=== PATIENT | female | born 1965 | race Caucasian/White ===

== ENCOUNTER 2019-07-29 06:53 | Outpatient (RCR) | payer MEDICARE, SELFPAY | END 2019-08-21 23:59 | disposition home or self-care (01) | LOC: PULRHB 06:53 | PROVIDERS: Family Provider Family Medicine; Visit Provider Internal Medicine Critical Care Medicine | DX: J44.9 Chronic obstructive pulmonary disease, unspecified (principal) ==

== ENCOUNTER → 2021-06-27 15:47 | Outpatient (BNVA) | payer MEDICARE, SELFPAY | PROVIDERS: Visit Provider Family Medicine | DX: J44.9 Chronic obstructive pulmonary disease, unspecified (principal); R91.1 Solitary pulmonary nodule; Z76.89 Persons encountering health services in other specified circumstances | CPT/HCPCS: 80053; 80061; 84443; 85025 ==

== ENCOUNTER → 2021-06-28 13:26 | Outpatient (BNVA) | payer MEDICARE, SELFPAY | PROVIDERS: Visit Provider Family Medicine | DX: J44.9 Chronic obstructive pulmonary disease, unspecified (principal); R91.1 Solitary pulmonary nodule; Z76.89 Persons encountering health services in other specified circumstances | CPT/HCPCS: 85025 ==

== ENCOUNTER 2021-12-05 13:43 | Outpatient (CLI) | payer MEDICARE, SELFPAY ==
--- NOTE | 2021-12-05 13:57 | CT_ITS ---
WS: [id number] CT CHEST WITHOUT INTRAVENOUS CONTRAST HISTORY: Pulmonary nodule TECHNIQUE: Contiguous 5 mm axial imaging performed on the thorax. Coronal and sagittal reformats are submitted. All CT scans at [facility] use at least one of these dose optimization techniques: automated exposure control; mA and/or kV adjustment per patient size (includes targeted exams where dose is matched to clinical indication); or iterative reconstruction. CONTRAST: None DLP: 426.05 mGy.cm COMPARISON: 10/03/2010 and 10/24/2017 radiograph. Lungs and central airway: Marked pulmonary hyperexpansion. Large bulla in the upper lung vasquez. Ther e is scattered granulomata which are calcified throughout both lungs. No focal nodule or mass. There are several noncalcified 3 to 4 mm nodules superior segment RIGHT lower lobe which are present in 201 1. Pleura: Normal. No pleural effusion. Heart and pericardium: Normal size heart with no pericardial effusion. Mediastinum and jhonny: No mediastinum or hilar adenopathy. Vessels: Normal size aortic and pulmonary artery. No coronary artery calcifications. Chest wall and lower neck: No soft tissue masses. Upper abdomen: Splenic granulomata. Nonenhanced imaging of the liver is normal. Osseous structures: Mild anterior wedging of T6. CT/CT chest wo con [id number] IMPRESSION: 1. Severe bullous emphysema. 2. Prior granulomatous disease. 3. Stable calcified and noncalcified nodule since 2010.
== END 2021-12-05 13:44 | disposition home or self-care (01) ==
PROVIDERS: PCP Family Medicine; Visit Provider Family Medicine
DX: R91.1 Solitary pulmonary nodule (principal); J43.9 Emphysema, unspecified
CPT/HCPCS: 71250

== ENCOUNTER → 2021-12-21 13:01 | Outpatient (BNVA) | payer MEDICARE, SELFPAY | PROVIDERS: PCP Family Medicine; Visit Provider Internal Medicine Critical Care Medicine | DX: J44.9 Chronic obstructive pulmonary disease, unspecified (principal); R91.1 Solitary pulmonary nodule; J96.11 Chronic respiratory failure with hypoxia; J96.12 Chronic respiratory failure with hypercapnia; Z99.81 Dependence on supplemental oxygen; Z87.891 Personal history of nicotine dependence | CPT/HCPCS: 99204 ==

== ENCOUNTER 2021-12-28 11:11 | Outpatient (CLI) | payer MEDICARE, SELFPAY ==
--- NOTE | 2021-12-28 | CT_ITS ---
Guided Bronchoscopy Planning CT images; total exam DLP: 546.74 mGy-cm MTDD
[2021-12-28 14:30] VITALS: BP 125/62; BP 158/84
--- NOTE | 2022-01-02 10:30 | PFTS_ITS ---
Date of Study:12/28/21 Date of Dictation: MECHANICS: Forced vital capacity (FVC) is reduced. Forced expiratory volume in one second (FEV1) is reduced. FEV1/FVC is reduced. FLOW VOLUME LOOP: Reduced flow at all lung volumes with significant scooping. LUNG VOLUMES: Total lung capacity (TLC) is increased. Residual volume (RV) is increased. DIFFUSING CAPACITY FOR CARBON MONOXIDE: Severely reduced. INTERPRETATION: The postbronchodilator spirometry is consistent with very severe obstruction. There is no significant postbronchodilator response. Lung volumes are consistent with hyperinflation and air trapping. Gas exchange (DLCO) is severely reduced. MTDD
== END 2021-12-28 11:12 | disposition home or self-care (01) ==
PROVIDERS: PCP Family Medicine; Visit Provider Internal Medicine Critical Care Medicine
DX: J44.9 Chronic obstructive pulmonary disease, unspecified (principal)
CPT/HCPCS: 71250; 94060; 94618; 94729; J7611

== ENCOUNTER 2023-01-25 15:30 | Emergency (ER) | payer MEDICARE, SELFPAY ==
[2023-01-25 15:37] VITALS: BP 120/66; PULSE 107; RESP 17; TEMP 36.6; O2SAT 97; BMI 18.3
--- NOTE | 2023-01-25 17:18 | XRR_ITS ---
PROCEDURE INFORMATION: Exam: XR Chest Exam date and time: 01/25/2023 5:29 PM Age: 57 years old Clinical indication: Pain; Chest pressure; Additional info: Chest congestion, dyspnea TECHNIQUE: Imaging protocol: Radiologic exam of the chest. Views: 2 views. COMPARISON: CT chest SELECT [id number] 12/28/2021 11:25 AM FINDINGS: Lungs: The lungs are hyperexpanded consistent with COPD. No acute abnormalities seen. Similar findings seen comparing to prior examination Pleural spaces: Unremarkable. No pleural effusion. No pneumothorax. Heart/Mediastinum: Unremarkable. No cardiomegaly. Bones/joints: Unremarkable. XR/XR chest 2V* [id number] IMPRESSION: Stable COPD Otherwise No acute findings.
--- NOTE | 2023-01-25 18:00 | ED_ITS ---
HPI - SOB/Dyspnea General: Chief Complaint: Shortness of Breath/Dyspnea Stated Complaint: Pain in Upper back Time Seen by Provider: 01/25/23 18:00 History of Present Illness: HPI Narrative: 57-year-old female comes in today with some complaints of right posterior chest wall pain for about 8 to 10 days. Patient has been given some prednisone for concerns of pleurisy. Patient was recommended to come into the ER today for further evaluation due to the persistence of pain with no improvement form medications. 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 Patient has chronic COPD which she is on routine medications and oxygen for work. Isela ent does take some ibuprofen with improvement of pain. Patient appears in no acute distress. Patient denies any other symptoms such as fever or swelling in the extremities. Associated symptoms: Reports chest pain; Deny nausea or vomiting Review of Systems General: Reports: 10 or more systems reviewed and unremarkable except in HPI and below Card: Reports: chest pain Resp: Denies: dyspnea GI: Denies: nausea or vomiting : Denies: difficulty voiding Musc: Reports: back pain Skin/Breast: Denies: rash PFSH ED PFSH: Medical History (Updated 01/25/23 @ 19:31 by CHANTEL Louis) COPD (chronic obstructive pulmonary disease) MRSA (methicillin resistant Staphylococcus aureus) carrier Pulmonary nodule Social History Smoking and tobacco status: former smoker Quit status (tobacco): has quit using tobacco Year quit tobacco: 2016 Former quit date comment: 1.5ppd x 35 years Second hand smoke exposure: No Alcohol intake: never Desire information about alcohol rehabilitation?: No Substance/Drug Use: never Desire information about substance/drug rehabilitation?: No Physical Exam Const: COMMON NORMALS: alert HENMT: COMMON NORMALS: normocephalic HEAD & SCALP: normocephalic MOUTH: Normal oral and palatal mucosa present Neck/C-Spine: COMMON NORMALS: full ROM Chest: CHEST: Yes tenderness (Right side posterior scapular line) Resp: COMMON NORMALS: normal respiratory effort and clear to auscultation bilaterally AUSCULTATION: clear to auscultation bilaterally Cardio: COMMON NORMALS: regular rate and regular rhythm RATE: regular rate RHYTHM: regular rhythm GI: COMMON NORMALS: non-tender Extremity: COMMON NORMALS: full ROM Neuro: SENSORIUM/ORIENTATION: Yes alert Skin: COMMON NORMALS: turgor normal GENERAL SKIN EXAM: turgor normal Course Vital Signs: Vital signs: Vital Signs Temperature 97.9 F 01/25/23 15:37 Pulse Rate 91 01/25/23 18:51 Respiratory Rate 17 01/25/23 15:37 Blood Pressure 121/79 01/25/23 18:51 Pulse Oximetry 100 01/25/23 18:51 Oxygen Delivery Me thod Nasal Cannula 01/25/23 18:51 Oxygen Flow Rate 3 01/25/23 18:51 MDM - SOB/Dyspnea Medical Decision Making 57-year-old female comes in today for complaints of chest pain. On exam patient has good air movement throughout lung vasquez. Abdomen soft nontender. No edema is noted in the extremities. Vital signs are normal. Patient has chest wall tenderness in the posterior aspect of the right side along the scapular line of the ribs. Differential diagnosis includes but not limited to pneumonia, pneumothorax, pleurisy, PE, costochondritis, rib fracture. X-ray was unremarkable. Laboratory values were unremarkable. CTA of the chest was negative for PE but noted emphysema, enlarged central artery suggesting pulmonary artery hypertension, and progressed thoracic compression fractures. Thoracic compression fractures seem to align with my exam with tenderness along the mid thoracic spine. Reviewed exam with patient with recommendations for treatment and follow-up with orthopedic spine. Patient reported understanding and agreed to plan. Patient will continue with her methadone that she uses for chronic pain and ibuprofen for further pain relief. Case management was requested for help with follow-up with orthopedic spine. Lab Data 01/25/23 18:14 01/25/23 18:14 Labs/Radiology: Radiology Impressions Chest X-Ray 01/25/23 17:18 IMPRESSION: Stable COPD Otherwise No acute findings. Chest CTA 01/25/23 18:05 IMPRESSION: 1. No evidence for pulmonary embolus. 2. Severe emphysema with no acute pulmonary finding. 3. Enlargement of the central pulmonary arteries could represent secondary pulmonary artery hypertension. 4. Multiple new or progressed thoracic compression fractures as described. COMMENTS: In the absence of a history or active diagnosis of lung cancer, it is recommended that this patient with emphysema be evaluated for enrollment in a low dose CT lung cancer screening program. Laboratory Results WBC 10.9 10^3/uL (4.0-10.0) H 01/25/23 18:14 RBC 4.37 10^6/uL (4.1-5.3) 01/25/23 18:14 Hgb 13.6 g/dL (11.5-15.3) 01/25/23 18:14 Hct 42.5 % (37.0-47.0) 01/25/23 18:14 MCV 97.3 fl (81-99) 01/25/23 18:14 MCH 31.1 pg (28.0-34.0) 01/25/23 18:14 MCHC 32.0 g/dL (30.0-36.0) 01/25/23 18:14 RDW 12.8 % (12.1-15.1) 01/25/23 18:14 Plt Count 263 10^3/cmm (130-400) 01/25/23 18:14 MPV 9.8 fL (7.4-10.4) 01/25/23 18:14 Neut % (Auto) 88.6 % 01/25/23 18:14 Lymph % (Auto) 4.1 % 01/25/23 18:14 Todd % (Auto) 6.4 % 01/25/23 18:14 Eos % (Auto) 0.0 % 01/25/23 18:14 Baso % (Auto) 0.2 % 01/25/23 18:14 Neut # (Auto) 9.68 10^3/uL (1.8-7.7) H 01/25/23 18:14 Lymph # (Auto) 0.5 10^3/uL (0.8-4.8) L 01/25/23 18:14 Todd # (Auto) 0.7 10^3/uL (0.2-0.9) 01/25/23 18:14 Eos # (Auto) 0.0 10^3/uL (0.0-0.8) 01/25/23 18:14 Baso # (Auto) 0.0 10^3/uL (0.0-0.1) 01/25/23 18:14 Nucleated RBC % (auto) 0 % 01/25/23 18:14 Nucleated RBCs # 0.0 /100WBC 01/25/23 18:14 Sodium 141 mmol/L (136-145) 01/25/23 18:14 Potassium 3.8 mmol/L (3.5-5.1) 01/25/23 18:14 Chloride 99 mmol/L (98-107) 01/25/23 18:14 Carbon Dioxide 32 mmol/L (22-29) H 01/25/23 18:14 Anion Gap 13.8 (5-19) 01/25/23 18:14 BUN 24 mg/dL (6-20) H 01/25/23 18:14 Creatinine 0.9 mg/dL (0.5-0.9) 01/25/23 18:14 GFR Calculation 64.8 mL/min (90-130) L 01/25/23 18:14 Glucose 88 mg/dL (65-115) 01/25/23 18:14 Calculated Osmolality 295 mOsm/kg (285-295) 01/25/23 18:14 Calcium 10.2 mg/dL (8.5-10.5) 01/25/23 18:14 Total Bilirubin 0.3 mg/dL (0.15-1.2) 01/25/23 18:14 AST 19 U/L (0-32) 01/25/23 18:14 ALT 17 U/L (0-33) 01/25/23 18:14 Alkaline Phosphatase 97 U/L (35-105) 01/25/23 18:14 Total Protein 7.6 g/dL (6.6-8.7) 01/25/23 18:14 Albumin 4.8 g/dL (3.5-5.2) 01/25/23 18:14 Globulin 2.8 g/dL (1.3-4.6) 01/25/23 18:14 Discharge Plan Discharge Patient Disposition: Home Clinical Impression: Compression fx, thoracic spine Qualifiers: Encounter type: initial encounter Thoracic vertebra fracture level: unspecified thoracic vertebra Qualified Code(s): S22.000A - Wedge compression fracture of unspecified thoracic vertebra, initial encounter for closed fracture Condition: Stable Prescriptions: No Action methadone 10 mg tablet 10 mg PO TID albuterol sulfate [Ventolin HFA] 90 mcg/actuation HFA aerosol inhaler 2 puff inhalation Q6H PRN Anoro Ellipta 62.5-25 mcg/actuation blister with device 1 inh inhalation DAILY 30 Days Qty: 60 1RF Discharge Orders: Discharge ED (Routine); Ordered 01/25/23 Ordered By: Nguyễn Sims Referrals: Cipriano Guerra DO [Primary Care Provider] - Discharge Diet: Usual diet Discharge Activity: Increase activity as tolerated Patient Instructions: Vertebral Compression Fracture (ED), Pain Management Activity Restrictions/Additional Instructions: Follow-up with marketing support specialist for further evaluation and treatment. Return to ED for new concerns. You may use ibuprofen for further pain relief. Continue with routine medications as directed. Return to ER for new concerns. Coding Level of Care Code ED [employer] for Eric Rene
--- NOTE | 2023-01-25 18:05 | CTR_ITS ---
PROCEDURE INFORMATION: Exam: CTA Chest With Contrast Exam date and time: 01/25/2023 6:21 PM Age: 57 years old Clinical indication: Right-sided; Patient HX: RT sided chest pain with dyspnea. History of copd and pulmonary nodule. ; Additional info: RT chest pain TECHNIQUE: Imaging protocol: Computed tomographic angiography of the chest with contrast. Exam focused on the arteries. 3D rendering (Not supervised by radiologist): MIP and/or 3D reconstructed images were created by the technologist. Radiation optimization: All CT scans at this facility use at least one of these dose optimization techniques: automated exposure control; mA and/or kV adjustment per patient size (includes targeted exams where dose is matched to clinical indication); or iterative reconstruction. Contrast material: OMNI 350; Contrast volume: 55 ml; Contrast route: INTRAVENOUS (IV); REPORTING DATA: Count of CT and Cardiac NM exams in prior 12 months: This patient has received 0 known CTs and 0 known cardiac nuclear medicine studies in the 12 months prior to the current study. COMPARISON: CT chest SELECT [id number] 12/28/2021 11:25 AM RADIATION DOSE METRICS: Total DLP (mGy-cm): 191.9 FINDINGS: Pulmonary arteries: Enlargement of the central arteries. No pulmonary emboli. Aorta: Unremarkable. No aortic aneurysm. No aortic dissection. Lungs: Calcified granulomas in the right lower lobe. Severe emphysema. Mild scattered atelectasis and scarring in both lungs. The lungs are otherwise clear. Pleural spaces: Unremarkable. No pneumothorax. No pleural effusion. Heart: Unremarkable. No cardiomegaly. No pericardial effusion. Lymph nodes: Calcified right hilar lymph nodes. No enlarged lymph nodes. Spleen: Calcified granulomas in the spleen. Bones/joints: New mild T3, progressed moderate T6, and new moderate T12 compression fractures. New central depression of superior T10 and T11. Soft tissues: Unremarkable. CT/CT angio chest PE protcl [id number] IMPRESSION: 1. No evidence for pulmonary embolus. 2. Severe emphysema with no acute pulmonary finding. 3. Enlargement of the central pulmonary arteries could represent secondary pulmonary artery hypertension. 4. Multiple new or progressed thoracic compression fractures as described. COMMENTS: In the absence of a history or active diagnosis of lung cancer, it is recommended that this patient with emphysema be evaluated for enrollment in a low dose CT lung cancer screening program.
[2023-01-25 18:17] VITALS: BP 130/82; PULSE 99; O2SAT 100
[2023-01-25] MEDS: iohexol 350 mg/mL 500 mL Btl (per mL) IV (18:28)
[2023-01-25 18:37] LABS: Alanine Aminotransferase 17 U/L (0-33); Albumin Level 4.8 g/dL (3.5-5.2); Alkaline Phosphatase 97 U/L (35-105); Anion Gap 13.8 (5-19); Aspartate Amino Transferase 19 U/L (0-32); Blood Urea Nitrogen 24 mg/dL (6-20); Calcium 10.2 mg/dL (8.5-10.5); Carbon Dioxide 32 mmol/L (22-29); Chloride 99 mmol/L (98-107); Globulin 2.8 g/dL (1.3-4.6); Glomerular Filtration Rate 64.8 mL/min (90-130); Glucose 88 mg/dL (65-115); Osmolality Calculated 295 mOsm/kg (285-295); Potassium 3.8 mmol/L (3.5-5.1); Sodium 141 mmol/L (136-145); Total Bilirubin 0.3 mg/dL (0.15-1.2); Total Protein 7.6 g/dL (6.6-8.7)
[2023-01-25 18:41] LABS: Basophils % 0.2 %; Hematocrit 42.5 % (37.0-47.0); Hemoglobin 13.6 g/dL (11.5-15.3); Lymphocytes # 0.5 10^3/uL (0.8-4.8); Lymphocytes % 4.1 %; Mean Corpuscular Hemoglobin 31.1 pg (28.0-34.0); Mean Corpuscular Volume 97.3 fl (81-99); Mean Platelet Volume 9.8 fL (7.4-10.4); Monocytes # 0.7 10^3/uL (0.2-0.9); Monocytes % 6.4 %; Neutrophils # 9.68 10^3/uL (1.8-7.7); Neutrophils % 88.6 %; Nucleated Red Blood Cells % 0 %; Platelet Count 263 10^3/cmm (130-400); Red Blood Count 4.37 10^6/uL (4.1-5.3); Red Cell Distribution Width 12.8 % (12.1-15.1); White Blood Count 10.9 10^3/uL (4.0-10.0)
[2023-01-25 18:51] VITALS: BP 121/79; PULSE 91; O2SAT 100
[2023-01-25 19:00] VITALS: BP 135/91; PULSE 98; O2SAT 100
[2023-01-25 19:30] VITALS: BP 121/85; PULSE 97; O2SAT 97
[2023-01-25 20:13] VITALS: BP 100/83; PULSE 92; O2SAT 97
--- NOTE | 2023-01-28 07:48 | DCPLANNER ---
Addendum entered by Arelis Whitehead 02/14/23 07:16: Patient had a follow up appointment scheduled with ortho - patient did attend appointment Addendum entered by Arelis Whitehead 01/29/23 15:58: Patient has a follow up appointment scheduled for Sunday, February 05, [address]23 at 8:[address] Truong at ortho. Original Note: law office manager had message to schedule a follow up appointment for patient with ortho. law office manager sent patients information to the front office staff at ortho. Patients information will be printed and reviewed. Clinic will call patient with appointment information.
== END 2023-01-25 20:14 | disposition home or self-care (01) ==
PROVIDERS: Emergency Provider Nurse Practitioner Family; PCP Family Medicine
DX: S22.030A Wedge compression fracture of third thoracic vertebra, initial encounter for closed fracture (principal); S22.050A Wedge compression fracture of T5-T6 vertebra, initial encounter for closed fracture; S22.080A Wedge compression fracture of T11-T12 vertebra, initial encounter for closed fracture; J44.9 Chronic obstructive pulmonary disease, unspecified; Z87.891 Personal history of nicotine dependence; Z99.81 Dependence on supplemental oxygen; X58.XXXA Exposure to other specified factors, initial encounter
CPT/HCPCS: 71046; 71275; 80053; 85025; 99285; Q9967

== ENCOUNTER → 2023-02-05 08:05 | Outpatient (BNVA) | payer MEDICARE, SELFPAY | PROVIDERS: PCP Family Medicine; Referring Provider Nurse Practitioner Family; Visit Provider Orthopaedic Surgery | DX: S22.000A Wedge compression fracture of unspecified thoracic vertebra, initial encounter for closed fracture (principal); Y93.E5 Activity, floor mopping and cleaning | CPT/HCPCS: 72070; 99204 ==

== ENCOUNTER 2023-02-28 15:03 | Outpatient (CLI) | payer MEDICARE, SELFPAY ==
--- NOTE | 2023-02-28 15:15 | MR_ITS ---
WS: [id number] MRI THORACIC SPINE noncontrast HISTORY: fracture COMPARISON: Thoracic spine radiographs 02/05/2023 TECHNIQUE: Multiplanar sequences are performed in sagittal and axial planes. Mild increase in the thoracic kyphosis centered at the thoracolumbar junction. No acute fractures or marrow edema. T6 40% compression fracture without loss of height. T11 mild concave deformity in the s uperior endplate is probably a Schmorl's node. 40% anterior wedging of T12 without retropulsion. This spaces are diffusely narrowed throughout. T1-2: Normal. T2-3: Normal. T3-4: Normal. T4-5: Normal. T5-6: Normal. T6-7: Tiny central disc protrusion seen best on the sagittal reformats. T7-8: Mild foraminal narrowing. T8-9: Mild facet arthritis. Mild foraminal stenosis. T9-10: Right foraminal nerve root sleeve diverticulum. Mild facet arthritis. T10-11: Mild bilateral facet arthritis and foraminal narrowing. T11-12: Diffuse annular disc bulging and mild osteophytic ridging. Bilateral mild facet arthritis. Mi ld bilateral foraminal stenosis. IMPRESSION: 1. No acute thoracic spine fracture or retropulsion. 2. Chronic T6 and T12 anterior compression fractures by approximately 40%. 3. Additional Schmorl's node superior endplate of T11. 4. Facet arthritis and mild foraminal narrowing as described above from T8-9 to T11-12.
== END 2023-02-28 15:04 | disposition home or self-care (01) ==
PROVIDERS: PCP Family Medicine; Visit Provider Orthopaedic Surgery
DX: S22.009A Unspecified fracture of unspecified thoracic vertebra, initial encounter for closed fracture (principal); X58.XXXA Exposure to other specified factors, initial encounter; M47.894 Other spondylosis, thoracic region
CPT/HCPCS: 72146

== ENCOUNTER → 2023-04-11 13:47 | Outpatient (BNVA) | payer MEDICARE, SELFPAY | PROVIDERS: PCP Family Medicine; Visit Provider Orthopaedic Surgery | DX: S22.059D Unspecified fracture of T5-T6 vertebra, subsequent encounter for fracture with routine healing; S22.089D Unspecified fracture of T11-T12 vertebra, subsequent encounter for fracture with routine healing; X58.XXXD Exposure to other specified factors, subsequent encounter; M81.0 Age-related osteoporosis without current pathological fracture | CPT/HCPCS: 99214 ==

== ENCOUNTER 2023-05-08 09:51 | Emergency (ER) | payer MEDICARE, SELFPAY ==
--- NOTE | 2023-05-08 10:06 | ED_ITS ---
HPI - Nausea/Vomiting/Diarrhea General: Chief complaint: Nausea/Vomiting/Diarrhea Stated complaint: vomiting, pain lower left back Time Seen by Provider: 05/08/23 10:03 History of Present Illness: 57-year-old female presents emergency department with complaints of several episodes of nausea and vomiting for the previous 1 month. She states it is gotten much worse over the past 24 hours. She states she does have some left flank pain that is radiating around to her left groin. She states she has also had increased urinary frequency and dysuria with small amount of production of urine. She states she is chronically on home oxygen and feels much more frail over the last 24 to 48 hours than in the past. She states she is unaware of any known sick contacts with similar symptoms. She states her left flank and left lower quadrant abdominal pain is now a 6 out of 10 and described as intermittent and sharp. Associated nausea: Yes Associated symtoms: Reports dysuria and nausea Review of Systems General: Reports: 10 or more systems reviewed and unremarkable except in HPI and below GI: Reports: abdominal pain, nausea and vomiting : Reports: flank pain, dysuria, urinary frequency, urinary urgency and urinary hesitancy COUNT INCLUDES THE [facility] ED PFSH: Medical History COPD (chronic obstructive pulmonary disease) MRSA (methicillin resistant Staphylococcus aureus) carrier Pulmonary nodule Social History Smoking and tobacco/nicotine status: former use of tobacco/nicotine Quit status (tobacco/nicotine): has quit using Year quit tobacco: 2016 Former quit date comment: 1.5ppd x 35 years Second hand smoke exposure: No Alcohol intake: never Substance/Drug Use: never Physical Exam Const: COMMON NORMALS: no acute distress, patient oriented x3 and alert HENMT: COMMON NORMALS: normocephalic and moist oral mucous membranes HEAD & SCALP: normocephalic Eye: COMMON NORMALS: Equal, round and reactive pupils present and EOMs intact bilaterally PUPIL: Yes Equal, round and reactive pupils present Neck/C-Spine: COMMON NORMALS: full ROM, supple and no meningeal signs Resp: COMMON NORMALS: normal respiratory effort and clear to auscultation bilaterally AUSCULTATION: clear to auscultation bilaterally Cardio: COMMON NORMALS: regular rate, regular rhythm, S1 normal heart sound present, S2 normal heart sound present and Peripheral pulses 2+ throughout RATE: regular rate RHYTHM: regular rhythm HEART SOUNDS: S1 normal heart sound present and S2 normal heart sound present PERIPHERAL PULSES: Peripheral pulses 2+ throughout GI: COMMON NORMALS: Normal to inspection, nondistended, normoactive bowel sounds present, Soft to palpation and non-tender PALPATION: Yes Soft to palpation : COMMON NORMALS: No no CVA tenderness (Left CVA tenderness) BLADDER/KIDNEY EXAM: No no CVA tenderness (Left CVA tenderness) Back/Pelvis: COMMON NORMALS: negative for no CVA tenderness (Left CVA tenderness) THORACIC SPINE/UPPER BACK: Yes normal to inspection and Yes thoracic ROM normal LUMBAR SPINE/LOWER BACK: Yes normal to inspection and Yes lumbar ROM normal Extremity: COMMON NORMALS: normal to inspection, full ROM and capillary refill normal Neuro: COMMON NORMALS: patient oriented x3 and moves all extremities SENSORIUM/ORIENTATION: Yes alert MENINGEAL SIGNS: Yes no meningeal signs Course Reevaluation(s): Reevaluation #1: Reevaluation of the patient after her receiving IV fluid and IV antibiotics demonstrate significant improvement in control of her left flank discomfort. I did discuss the CT scan findings that included a small left renal calculi and I suspect this may be a contributing factor to her left flank pain as well as her urinary tract infection. I did discuss the importance of recommended follow-up with her primary care provider as well as completion of all the antibiotics that she will be prescribed at discharge. She is verbalized understanding of all information provided and will be discharged home shortly. Time: 14:10 Vital Signs: Vital signs: Vital Signs Pulse Rate 88 05/08/23 14:00 Blood Pressure 121/75 05/08/23 14:00 Pulse Oximetry 100 05/08/23 14:00 Oxygen Delivery Me thod Room Air 05/08/23 14:00 Oxygen Flow Rate 5 05/08/23 11:10 MDM - Nausea/Vomiting/Diarrhea Medical Decision Making Given the patient's recurrent nausea and vomiting and inability keep any food down I will provide her antiemetic, laboratory evaluation to include urinalysis as well as CBC and a CMP to evaluate her renal and hepatic function. We will also obtain a COVID swab as well as an influenza a and B for evaluation. Patient states she also had increase in home oxygen that she normally uses over the previous 4 days and we will obtain a chest x-ray as well and most likely given her presenting complaints I suspect this may very well be a cystitis and potentially pyelonephritis as well as possibly a viral gastroenteritis. We will obtain a CT scan to rule out nephrolithiasis and pyelonephritis as well as gastroenteritis. I will provide IV fluid rehydration while we wait for her laboratory results to return Medical Records I reviewed the patient's medical records. Lab Data I reviewed the patient's lab results. 05/08/23 10:31 05/08/23 10:31 Radiology Impressions Chest X-Ray 05/08/23 10:11 IMPRESSION: Hyperinflated lungs with underlying emphysema. No acute process Laboratory Results WBC 7.11 10^3/uL (3.29-11.43) 05/08/23 10:31 RBC 3.35 10^6/uL (3.85-5.65) L 05/08/23 10:31 Hgb 10.40 g/dL (11.27-16.99) L 05/08/23 10:31 Hct 32.6 % (36-47) L 05/08/23 10:31 MCV 97.3 fl (85-98) 05/08/23 10:31 MCH 31.0 pg (27-33) 05/08/23 10:31 MCHC 31.9 g/dL (30-55) 05/08/23 10:31 RDW 11.9 % (12.1-15.1) L 05/08/23 10:31 Plt Count 183 10^3/cmm (157-399) 05/08/23 10:31 MPV 10.6 fL (7.4-10.4) H 05/08/23 10:31 Neut % (Auto) 78.1 % 05/08/23 10:31 Lymph % (Auto) 10.4 % 05/08/23 10:31 [place] % (Auto) 9.0 % 05/08/23 10:31 Eos % (Auto) 2.0 % 05/08/23 10:31 Baso % (Auto) 0.4 % 05/08/23 10:31 Neut # (Auto) 5.55 10^3/uL (1.8-7.7) 05/08/23 10:31 Lymph # (Auto) 0.7 10^3/uL (0.8-4.8) L 05/08/23 10:31 [place] # (Auto) 0.6 10^3/uL (0.2-0.9) 05/08/23 10:31 Eos # (Auto) 0.1 10^3/uL (0.0-0.8) 05/08/23 10:31 Baso # (Auto) 0.0 10^3/uL (0.0-0.1) 05/08/23 10:31 Nucleated RBC % (auto) 0 % 05/08/23 10:31 Nucleated RBCs # 0.0 /100WBC 05/08/23 10:31 Sodium 142 mmol/L (136-145) 05/08/23 10:31 Potassium 2.7 mmol/L (3.5-5.1) L* 05/08/23 10:31 Chloride 97 mmol/L (98-107) L 05/08/23 10:31 Carbon Dioxide 34 mmol/L (22-29) H 05/08/23 10:31 Anion Gap 13.7 (5-19) 05/08/23 10:31 BUN 13 mg/dL (6-20) 05/08/23 10:31 Creatinine 1.8 mg/dL (0.5-0.9) H 05/08/23 10:31 GFR Calculation 29.1 mL/min (90-130) L 05/08/23 10:31 Glucose 93 mg/dL (65-115) 05/08/23 10:31 Calculated Osmolality 294 mOsm/kg (285-295) 05/08/23 10:31 Calcium 12.2 mg/dL (8.5-10.5) H 05/08/23 10:31 Total Bilirubin 0.4 mg/dL (0.15-1.2) 05/08/23 10:31 AST 25 U/L (0-32) 05/08/23 10:31 ALT 14 U/L (0-33) 05/08/23 10:31 Alkaline Phosphatase 57 U/L (35-105) 05/08/23 10:31 Total Protein 7.2 g/dL (6.6-8.7) 05/08/23 10:31 Albumin 4.2 g/dL (3.5-5.2) 05/08/23 10:31 Globulin 3.0 g/dL (1.3-4.6) 05/08/23 10:31 Lipase 11 U/L (13-60) L 05/08/23 10:31 Urine Color Yellow (Yellow) 05/08/23 11:15 Urine Appearance Sl hazy (CLEAR) A 05/08/23 11:15 Urine pH 6 (5-7) 05/08/23 11:15 Ur Specific [place] 1.015 (1.005-1.030) 05/08/23 11:15 Urine Protein Neg (Negative) 05/08/23 11:15 Urine Glucose (UA) Norm (Normal) 05/08/23 11:15 Urine Ketones 1+ (Negative) H 05/08/23 11:15 Urine Blood 3+ (Negative) H 05/08/23 11:15 Urine Nitrate Negative (Negative) 05/08/23 11:15 Urine Bilirubin Neg (Negative) 05/08/23 11:15 Urine Urobilinogen Norm mg/dL (Negative) 05/08/23 11:15 Ur Leukocyte Esterase 2+ (Negative) H 05/08/23 11:15 Urine RBC 5-10 /hpf (0-2) H 05/08/23 11:15 Urine WBC 5-10 /hpf (0-5) H 05/08/23 11:15 Ur Squamous Epith Cells 0-4 /hpf (0-5) H 05/08/23 11:15 Calcium Oxalate Crystal 10-15 /hpf H 05/08/23 11:15 Amorphous Sediment Not Reportable 05/08/23 11:15 Urine Bacteria Trace /hpf (NONE) 05/08/23 11:15 Urine Mucus 1+ /hpf 05/08/23 11:15 Influenza Type A Ag negative (Negative) 05/08/23 11:06 Influenza Type B Ag negative (Negative) 05/08/23 11:06 SARS-CoV-2 Ag (Rapid) negative (Negative) 05/08/23 11:06 All radiology interpretation(s) finalized by discharge ED provider radiology interpretation(s): left renal calculi, nonobstructive Discharge Plan Discharge Patient Disposition: Home Clinical Impression: Left nephrolithiasis, Nausea & vomiting, UTI (urinary tract infection), Acute hypokalemia Condition: Stable Prescriptions: No Action methadone 10 mg tablet 10 mg PO TID morphine concentrate 100 mg/5 mL (20 mg/mL) solution 20 mg sublingual DIRECTED PRN (Reason: Pain/SOB) 14 Days Qty: 30 0RF Rx Instructions: 0.25ml-1ml q1H PRN may increase to 0.5ml-1ml Q1H PRN bisacodyl 10 mg suppository 10 mg PA DAILY PRN (Reason: constipation) Qty: 5 0RF Rx Instructions: 1 suppository per rectum every day PRN for constipation. atropine 1 % drops 4 drp sublingual Q4H PRN (Reason: secretions) Qty: 5 0RF Rx Instructions: 4 drops SL q 4 hours PRN for terminal congestion/excessive secretions. ondansetron 4 mg tablet,disintegrating 4 mg translingual Q4H PRN (Reason: nausea) Qty: 5 0RF Rx Instructions: Dissolve 1 tablet under tongue every 4 hours PRN for nausea lorazepam 2 mg/mL concentrate 2 mg sublingual Q4H PRN (Reason: Anxiety/Seizure) Qty: 30 0RF Rx Instructions: 0.25ml-1ml q4H PRN Anxiety/Seizure Start 0.25ml may increase to 0.5ml-1ml q4H ondansetron HCl 4 mg Tablet 4 mg PO Q8H PRN (Reason: Nausea) Qty: 30 0RF pantoprazole 40 mg Tablet,Delayed Release (Dr/Ec) 40 mg PO DAILY Qty: 30 0RF prednisone 10 mg tablet 10 mg PO DAILY Qty: 100 0RF Rx Instructions: Take 4 tablets daily x1 week then 2 tablets daily for second week, then 1 tablet daily until further instructions. buspirone 7.5 mg tablet 7.5 mg PO BID Qty: 90 0RF Rx Instructions: Start 1 tab twice daily for 3d, then 2 tabs twice daily for 3 d then 3 tabs twice daily. 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
--- NOTE | 2023-05-08 10:11 | XRR_ITS ---
PROCEDURE INFORMATION: Exam: XR Chest Exam date and time: 05/08/2023 10:18 AM Age: 57 years old Clinical indication: Dyspnea TECHNIQUE: Imaging protocol: Radiologic exam of the chest. Views: 1 view. COMPARISON: CR (CHEST, ) 01/25/2023 5:29 PM FINDINGS: Lungs: Hyperinflated lungs with underlying emphysema. Pleural spaces: Unremarkable. No pleural effusion. No pneumothorax. Heart/Mediastinum: Unremarkable. No cardiomegaly. Bones/joints: Unremarkable. XR/XR chest 1V portable [id number] IMPRESSION: Hyperinflated lungs with underlying emphysema. No acute process
[2023-05-08] MEDS: sodium chloride 0.9% 1,000 ML 999 ML IV ×2 (10:35→13:18)
[2023-05-08] MEDS: ondansetron 2 mg/ML SDV 2 mL 4 MG IVP (10:35)
[2023-05-08 10:39] LABS: Basophils % 0.4 %; Eosinophils # 0.1 10^3/uL (0.0-0.8); Hematocrit 32.6 % (36-47); Lymphocytes # 0.7 10^3/uL (0.8-4.8); Lymphocytes % 10.4 %; Mean Corpuscular HGB Conc 31.9 g/dL (30-55); Mean Corpuscular Volume 97.3 fl (85-98); Mean Platelet Volume 10.6 fL (7.4-10.4); Monocytes # 0.6 10^3/uL (0.2-0.9); Neutrophils # 5.55 10^3/uL (1.8-7.7); Neutrophils % 78.1 %; Nucleated Red Blood Cells % 0 %; Platelet Count 183 10^3/cmm (157-399); Red Blood Count 3.35 10^6/uL (3.85-5.65); Red Cell Distribution Width 11.9 % (12.1-15.1); White Blood Count 7.11 10^3/uL (3.29-11.43)
[2023-05-08 11:06] LABS: Alanine Aminotransferase 14 U/L (0-33); Albumin Level 4.2 g/dL (3.5-5.2); Alkaline Phosphatase 57 U/L (35-105); Anion Gap 13.7 (5-19); Aspartate Amino Transferase 25 U/L (0-32); Blood Urea Nitrogen 13 mg/dL (6-20); Calcium 12.2 mg/dL (8.5-10.5); Carbon Dioxide 34 mmol/L (22-29); Chloride 97 mmol/L (98-107); Glomerular Filtration Rate 29.1 mL/min (90-130); Glucose 93 mg/dL (65-115); Lipase 11 U/L (13-60); Osmolality Calculated 294 mOsm/kg (285-295); Sodium 142 mmol/L (136-145); Total Bilirubin 0.4 mg/dL (0.15-1.2); Total Protein 7.2 g/dL (6.6-8.7)
[2023-05-08 11:10] VITALS: BP 143/91; PULSE 89; O2SAT 100
[2023-05-08 11:12] LABS: Potassium 2.7 mmol/L (3.5-5.1)
[2023-05-08 11:30] LABS: Influenza A by IFA negative (Negative); Influenza B by IFA negative (Negative); SARS Covid-2 Antigen negative (Negative)
[2023-05-08 11:33] LABS: Add Urine Microscopic? YES; Bilirubin Urine Neg (Negative); Blood Urine 3+ (Negative); Glucose Urine UA Norm (Normal); Ketones Urine 1+ (Negative); Leukocyte Esterase Urine 2+ (Negative); Nitrate Urine Negative (Negative); Protein Urine Neg (Negative); Specific Gravity, Urine 1.015 (1.005-1.030); Urine Appearance SL Hazy (CLEAR); Urine Color Yellow (Yellow); Urobilinogen Urine Norm (Negative); pH Urine 6 (5-7)
[2023-05-08 11:40] LABS: Bacteria Urine TRACE /hpf; Mucus Urine 1+ /hpf; Squamous Epithelial Cell Urine 0-4 /hpf (0-5)
[2023-05-08 11:44] LABS: Add Urine Culture? Yes
[2023-05-08] MEDS: potassium chloride ER 20 mEq Tablet 40 MEQ PO (12:19)
[2023-05-08] MEDS: cefTRIAXone 1,000 MG in sodium chloride 0.9% (plus) 50 ML 100 MG IV (12:21)
[2023-05-08 12:57] VITALS: BP 113/94; PULSE 96; O2SAT 100
--- NOTE | 2023-05-08 13:10 | CT_ITS ---
WS: [id number] CT ABDOMEN PELVIS TECHNIQUE: Noncontrast CT of the abdomen and pelvis with coronal and sagittal reformatted images. CLINICAL INFORMATION: left flank pain COMPARISON: None. DLP: 277.[address] scans at [facility] use at least one of these dose optimization techniques: automated e xposure control; mA and/or kV adjustment per patient size (includes targeted exams where dose is matc hed to clinical indication); or iterative reconstruction. FINDINGS: Tiny calculus at the LEFT UVJ measuring 3 mm with mild LEFT ureterectasis. Mild LEFT pelvocaliectasis . Urine distended bladder. No obstructing RIGHT renal or ureteral calculi. Adrenal glands are normal. Bilateral nonobstructing calyceal tip calculi bilaterally. Advanced chronic emphysematous changes in the lung bases. Calcified granuloma RIGHT lower lobe. Mild fluid distention of the gallbladder. No gallbladder wall thickening or pericholecystic fluid. Noncont rast liver appears normal. Splenic granulomas. Normal GE junction. Normal caliber abdominal aorta. Mi ld aortic calcification. Urine distended bladder. Normal sigmoid colon. No evidence of high-grade small or large bowel obstruction. Anterior wedging at T12 with small fracture superior endplate unchanged since 01/25/2023. No retropulsion. IMPRESSION: 1. Tiny calculus at the LEFT UVJ measuring 3 mm. Mild LEFT ureterectasis with mild LEFT pelvicaliect asis. 2. Tiny nonobstructing calyceal tip calculi bilaterally. 3. Urine distended bladder. 4. Anterior wedging with compression fracture superior endplate T12 unchanged since 01/25/2023. No ret ropulsion. Notified Candido Page MD at 05/08/2023 2:09 PM.
[2023-05-08] MEDS: fentaNYL 50 mcg/mL INJ 2mL 25 MCG IVP (13:54)
[2023-05-08 14:00] VITALS: BP 121/75; PULSE 88; O2SAT 100
== END 2023-05-08 14:56 | disposition home or self-care (01) ==
PROVIDERS: Emergency Provider Internal Medicine; PCP Family Medicine
DX: N20.0 Calculus of kidney (principal); N39.0 Urinary tract infection, site not specified; E87.6 Hypokalemia; R11.2 Nausea with vomiting, unspecified; Z79.891 Long term (current) use of opiate analgesic; Z11.52 Encounter for screening for COVID-19; J44.9 Chronic obstructive pulmonary disease, unspecified; Z87.891 Personal history of nicotine dependence
CPT/HCPCS: 71045; 74176; 80053; 81001; 83690; 85025; 87086; 87426; 87804; 96365; 96375; 99285; J0696; J2405; J3010; J7030

== ENCOUNTER 2023-05-16 13:30 | Observation (INO) | payer MEDICARE, SELFPAY ==
[2023-05-16] VITALS (31 sets, daily range): BP systolic 108–145; BP diastolic 57–96; PULSE 93–124; RESP 16–35; TEMP 36.4–37.1; O2SAT 71–98
--- NOTE | 2023-05-16 14:09 | ED_ITS ---
HPI - SOB/Dyspnea General: Chief Complaint: Shortness of Breath/Dyspnea Stated Complaint: heart rate is high Time Seen by Provider: 05/16/23 14:04 Source: patient Mode of arrival: ambulatory History of Present Illness: HPI Narrative: 57-year-old female with history of COPD is chronically on oxygen at 2 L/min. Presents to the emergency room complaining of elevated heart rate and shortness of breath she has been turning her oxygen up starting last night [place] here she is O2 to have liters per minute. She uses Spiriva and albuterol inhaler she last used her albuterol inhaler this morning but does not use any nebulizers. No chest pain denies fever no productive cough. On arrival patient is noted to be tripoding with significant use of accessory muscles. She is extremely anxious. MD elicited complaint: shortness of breath and cough Pertinent past history: COPD Severity: severe Exacerbating factors: exertion and coughing Relieving factors: oxygen, rest and bronchodilators Known history of: COPD Associated symptoms: Reports cough and sense of impending doom; Deny abdominal pain, chest congestion, chest pain, diaphoresis, dizziness, extremity pain, fever(s), hemoptysis, lightheadedness, myalgias, nausea, orthopnea, palpitations, paresthesias, polydipsia, polyuria, rash, syncope or vomiting Review of Systems Const: Denies: fever(s), chills or diaphoresis Card: Denies: chest pain, palpitations, lightheadedness, syncope or orthopnea Resp: Reports: dyspnea, non-productive cough and wheezing; Denies: hemoptysis or chest congestion GI: Denies: abdominal pain, nausea or vomiting : Denies: dysuria, urinary frequency or urinary urgency Musc: Denies: neck pain, back pain or extremity pain Skin/Breast: Denies: rash Neuro: Denies: dizziness Endo: Denies: polyuria or polydipsia PFSH ED PFSH: Medical History COPD (chronic obstructive pulmonary disease) MRSA (methicillin resistant Staphylococcus aureus) carrier Pulmonary nodule Social History Smoking and tobacco/nicotine status: former use of tobacco/nicotine Quit status (tobacco/nicotine): has quit using Year quit tobacco: 2017 Former quit date comment: 1.5ppd x 35 years Second hand smoke exposure: No Alcohol intake: never Substance/Drug Use: never Physical Exam Const: GENERAL APPEARANCE: cooperative and comfortable ORIENTATION/CONSCIOUSNESS: Yes awake, Yes oriented to person, Yes oriented to place and Yes oriented to time HENMT: COMMON NORMALS: normocephalic, atraumatic and hearing grossly normal bilaterally HEAD & SCALP: normocephalic and atraumatic Resp: EFFORT & INSPECTION: Yes abnormal respiratory pattern, Yes tachypneic, Yes labored, Yes retractions and Yes uses accessory muscles AUSCULTATION: wheezes and diminished lung sounds Cardio: COMMON NORMALS: regular rhythm and No murmurs present (Cardio) RATE: tachycardic RHYTHM: regular rhythm GI: COMMON NORMALS: Soft to palpation and No hepatosplenomegaly present AUSCULTATION: Yes normoactive bowel sounds PALPATION: Yes Soft to palpation, No Tenderness to palpation present (GI), No Guarding due to palpation present (GI) and Yes No hepatosplenomegaly present Extremity: COMMON NORMALS: normal to inspection, capillary refill normal, no clubbing, cyanosis or edema, no calf tenderness and no pedal edema Neuro: SENSORIUM/ORIENTATION: Yes oriented to person, Yes oriented to place and Yes oriented to time Skin: COMMON NORMALS: no rashes or lesions noted GENERAL SKIN EXAM: no rashes or lesions noted Course Vital Signs: Vital signs: Vital Signs Temperature 97.5 F L 05/16/23 14:12 Pulse Rate 123 H 05/16/23 14:38 Respiratory Rate 29 H 05/16/23 14:38 Blood Pressure 145/96 05/16/23 14:38 Pulse Oximetry 94 05/16/23 14:38 Oxygen Delivery Me thod Nasal Cannula 05/16/23 14:38 Oxygen Flow Rate 10 05/16/23 14:38 Fraction of Inspir ed Oxygen 35 05/16/23 14:32 MDM - SOB/Dyspnea Medical Decision Making Acute on chronic hypercapnic respiratory failure with hypoxia worsening with an acute exacerbation of COPD. Improved with BiPAP. Sputum culture start Zithromax and ceftriaxone given dexamethasone and nebulizers has had some improvement will require inpatient care. Medical Records I reviewed the patient's medical records. Lab Data I reviewed the patient's lab results. 05/16/23 14:10 05/16/23 14:10 Labs/Radiology: Laboratory Results WBC 7.32 10^3/uL (3.29-11.43) 05/16/23 14:10 RBC 3.18 10^6/uL (3.85-5.65) L 05/16/23 14:10 Hgb 10.00 g/dL (11.27-16.99) L 05/16/23 14:10 Hct 31.6 % (36-47) L 05/16/23 14:10 MCV 99.4 fl (85-98) H 05/16/23 14:10 MCH 31.4 pg (27-33) 05/16/23 14:10 MCHC 31.6 g/dL (30-55) 05/16/23 14:10 RDW 12.0 % (12.1-15.1) L 05/16/23 14:10 Plt Count 230 10^3/cmm (157-399) 05/16/23 14:10 MPV 10.3 fL (7.4-10.4) 05/16/23 14:10 Neut % (Auto) 75.4 % 05/16/23 14:10 Lymph % (Auto) 15.3 % 05/16/23 14:10 [place] % (Auto) 7.5 % 05/16/23 14:10 Eos % (Auto) 0.7 % 05/16/23 14:10 Baso % (Auto) 0.8 % 05/16/23 14:10 Neut # (Auto) 5.52 10^3/uL (1.8-7.7) 05/16/23 14:10 Lymph # (Auto) 1.1 10^3/uL (0.8-4.8) 05/16/23 14:10 [place] # (Auto) 0.6 10^3/uL (0.2-0.9) 05/16/23 14:10 Eos # (Auto) 0.1 10^3/uL (0.0-0.8) 05/16/23 14:10 Baso # (Auto) 0.1 10^3/uL (0.0-0.1) 05/16/23 14:10 Nucleated RBC % (auto) 0 % 05/16/23 14:10 Nucleated RBCs # 0.0 /100WBC 05/16/23 14:10 Specimen Type Arterial 05/16/23 14:34 Sample Site Brachial, left 05/16/23 14:34 ABG pH 7.31 (7.35-7.45) L 05/16/23 14:34 ABG pCO2 65.2 mmHg (35-45) H* 05/16/23 14:34 ABG pO2 102.0 mmHg (80.0-100.0) H 05/16/23 14:34 ABG HCO3 32.8 mmol/L (22-26) H 05/16/23 14:34 ABG O2 Saturation 98.1 05/16/23 14:34 ABG Base Excess 5.3 mmol/L (-2.0-2.0) H 05/16/23 14:34 [place] Test Pos 05/16/23 14:34 A-a O2 Gradient 8.9 mmHg (5-10) 05/16/23 14:34 Hematocrit 29.4 % (37-47) L 05/16/23 14:34 Hgb O2 Saturation 95.8 % (95-100) 05/16/23 14:34 Carboxyhemoglobin 1.3 %THgb (0.4-20.1) 05/16/23 14:34 Methemoglobin 1.0 % (0.4-1.5) 05/16/23 14:34 Total Hemoglobin 9.6 g/dL (12-16) L 05/16/23 14:34 Sodium 141.0 mmol/L (131-143) 05/16/23 14:34 Potassium 3.5 mmol/L (3.5-5.0) 05/16/23 14:34 Glucose 150.0 mg/dL (70-115) H 05/16/23 14:34 Ionized Calcium 1.4 mmol/L (1.1-1.4) 05/16/23 14:34 O2 Delivery Device Bipap 05/16/23 14:34 FiO2 35.0 % 05/16/23 14:34 Sheriff Sergeant ID Cak 05/16/23 14:34 Sodium 143 mmol/L (136-145) 05/16/23 14:10 Potassium 4.0 mmol/L (3.5-5.1) 05/16/23 14:10 Chloride 98 mmol/L (98-107) 05/16/23 14:10 Anion Gap 15.0 (5-19) 05/16/23 14:10 BUN 15 mg/dL (6-20) 05/16/23 14:10 Total Bilirubin 0.2 mg/dL (0.15-1.2) 05/16/23 14:10 AST 26 U/L (0-32) 05/16/23 14:10 ALT 17 U/L (0-33) 05/16/23 14:10 Alkaline Phosphatase 57 U/L (35-105) 05/16/23 14:10 Total Protein 7.1 g/dL (6.6-8.7) 05/16/23 14:10 Albumin 4.6 g/dL (3.5-5.2) 05/16/23 14:10 Globulin 2.5 g/dL (1.3-4.6) 05/16/23 14:10 All radiology interpretation(s) finalized by discharge Discharge Plan Discharge Patient Disposition: Admitted As Inpatient Clinical Impression: Acute on chronic respiratory failure with hypoxia and hypercapnia, Acute exacerbation of chronic obstructive airways disease Condition: Stable Coding Level of Care Code ED Filer Repairer for Eric Rene
--- NOTE | 2023-05-16 14:09 | XR_ITS ---
WS: [id number] Exam: XR chest 1V portable [id number] Date/Time of Exam: 05/16/2023 2:11 PM Reason For Exam: dyspnea/cough Comparison 05/08/2023. Marked pulmonary hyperinflation. No acute infiltrates. Chronic interstitial changes in the lower lung zones. Normal heart size. Prominent main pulmonary arteries which may indicate pulmonary hypertensio n. The mediastinum is normal in contour. Bony structures are intact. IMPRESSION: 1. Marked pulmonary hyperinflation most likely indicating obstructive lung disease. No acute process identified. 2. Prominent main pulmonary arteries which may indicate pulmonary hypertension.
--- NOTE | 2023-05-16 14:16 | ECG_ITS ---
[facility] Test Date: 2023-05-16 Pat Name: Nancy Santoyo Department: Room: Gender: Female Library Historian: : 1965 Requested By: Nishant Schmid Order Number: [id number] Sandy MD: Xiao Landa M.D. Measurements Intervals [place] Rate: 110 P: 88 MI: 132 QRS: 66 QRSD: 85 T: 174 QT: 332 QTc: 450 Interpretive Statements SINUS TACHYCARDIA WITH FREQUENT SUPRAVENTRICULAR PREMATURE COMPLEXES ST DEVIATION AND MODERATE T-WAVE ABNORMALITY, CONSIDER LATERAL ISCHEMIA [-0.1+ mV T-WAVE IN I/aVL/V5/V6] ST DEVIATION AND MODERATE T-WAVE ABNORMALITY, CONSIDER INFERIOR ISCHEMIA [-0.1+ mV T-WAVE IN II/aVF] Compared to ECG 10/24/2017 20:53:34 Possible ischemia now present Sinus rhythm no longer present Short MI interval no longer present T-wave abnormality still present Electronically Signed On 05-16-2023 19:57:33 CDT by Xiao Landa M.D. [email or web address]
[2023-05-16] MEDS: ipratropium-albuterol 3 mL Neb 6 ML INHALATION (14:27)
[2023-05-16] MEDS: dexamethasone 10 mg/mL INJ IM (14:33)
[2023-05-16] MEDS: ondansetron 2 mg/ML SDV 2 mL 4 MG IVP (14:37)
[2023-05-16 14:38] LABS: Basophils # 0.1 10^3/uL (0.0-0.1); Basophils % 0.8 %; Eosinophils # 0.1 10^3/uL (0.0-0.8); Eosinophils % 0.7 %; Hematocrit 31.6 % (36-47); Lymphocytes # 1.1 10^3/uL (0.8-4.8); Lymphocytes % 15.3 %; Mean Corpuscular HGB Conc 31.6 g/dL (30-55); Mean Corpuscular Hemoglobin 31.4 pg (27-33); Mean Corpuscular Volume 99.4 fl (85-98); Mean Platelet Volume 10.3 fL (7.4-10.4); Monocytes # 0.6 10^3/uL (0.2-0.9); Monocytes % 7.5 %; Neutrophils # 5.52 10^3/uL (1.8-7.7); Neutrophils % 75.4 %; Nucleated Red Blood Cells % 0 %; Platelet Count 230 10^3/cmm (157-399); Red Blood Count 3.18 10^6/uL (3.85-5.65); White Blood Count 7.32 10^3/uL (3.29-11.43)
[2023-05-16 14:46] LABS: ABG PCO2 65.2 mmHg (35-45); ABG PH Result 7.31 (7.35-7.45); Alveolar-Arterial Oxygen Gradi 8.9 mmHg (5-10); Arterial Blood Gas Hematocrit 29.4 % (37-47); Base Excess ABG 5.3 mmol/L (-2.0-2.0); Blood Gas Allen Test Pos; Blood Gas Operator Identificat CAK; Blood Gas Sample Site Brachial, left; Blood Gas Sample Type Arterial; Carboxyhemoglobin 1.3 %THgb (0.4-20.1); HCO3 ABG 32.8 mmol/L (22-26); HGB O2 Sat 95.8 % (95-100); Ionized Calcium Level - ABG 1.4 mmol/L (1.1-1.4); Oxygen Device BIPAP; Oxygen Saturation ABG 98.1; Potassium Level - ABG 3.5 mmol/L (3.5-5.0); Total Hemoglobin 9.6 g/dL (12-16)
[2023-05-16 14:51] LABS: Alanine Aminotransferase 17 U/L (0-33); Albumin Level 4.6 g/dL (3.5-5.2); Alkaline Phosphatase 57 U/L (35-105); Aspartate Amino Transferase 26 U/L (0-32); Blood Urea Nitrogen 15 mg/dL (6-20); Calcium 11.1 mg/dL (8.5-10.5); Carbon Dioxide 34 mmol/L (22-29); Chloride 98 mmol/L (98-107); Globulin 2.5 g/dL (1.3-4.6); Glomerular Filtration Rate 46.5 mL/min (90-130); Glucose 144 mg/dL (65-115); Osmolality Calculated 299 mOsm/kg (285-295); Sodium 143 mmol/L (136-145); Total Bilirubin 0.2 mg/dL (0.15-1.2); Total Protein 7.1 g/dL (6.6-8.7); Troponin(5th) Baseline 12 ng/L (0-10)
[2023-05-16] MEDS: cefTRIAXone 1,000 MG in sodium chloride 0.9% (plus) 50 ML 100 MG IV (15:10)
[2023-05-16] MEDS: azithromycin 500 MG in sodium chloride 0.9% 250 ML 250 MG IV (15:10)
[2023-05-16 16:24] LABS: Troponin 5 2HR 11.58 ng/L (0-10)
[2023-05-16 16:25] LABS: Troponin 5 2HR Delta -0.42 ABS# (0-10)
--- NOTE | 2023-05-16 19:02 | P.HP_ITS ---
Providers/Chief Complaint Admitting Physician: Rafael Jaramillo DO Primary Care Provider: Cipriano Guerra DO Chief Complaint: heart rate is high History of Present Illness Nancy Santoyo is a 57 year old female was diagnosed with COPD 4 years ago has done well until recently. She wears 3 L to sleep and increase this to 5 to 6 L during the day. She wears her BiPAP every other night. She says she gets quite anxious with BiPAP and does not sleep well. Since January 26 when she suffered to compression fractures she has had 1 thing after another . Patient's had a recent UTI with kidney stones. But overall she has not had to be hospitalized for COPD. In April 2022 show her PFTs showed severe very severe disease with FEV1 14% of prediction. At this time she would do a trial of ventilation but would not want to be on a vent long-term. Review of Systems Const: Denies: fever(s) or chills Eyes: Denies: change in vision ENMT: Denies: throat pain or nasal congestion Card: Denies: chest pain Resp: Reports: dyspnea; Denies: productive cough GI: Denies: abdominal pain, vomiting or change in stool character : Denies: dysuria Musc: Reports: extremity pain (Left ankle pain after a staph infection. She has very limited motion ); Denies: back pain Skin/Breast: Denies: rash or lesions Neuro: Denies: headache(s) or dizziness Psych: Denies: anxiety or depression Dominick/Lymph: Denies: easy bruising or easy bleeding Medications/Allergies Home Medications Medication Instructions Recorded Confirmed Last Taken Type albuterol sulfate 90 mcg/actuation 2 puff inhalation Q6H PRN 06/27/21 05/16/23 05/07/23 History aerosol inhaler (Ventolin HFA) Shortness Of Breath methadone 10 mg tablet 10 mg PO TID 06/27/21 05/16/23 05/16/23 History prednisone 10 mg tablet 10 mg PO DAILY 02/05/23 05/16/23 05/16/23 History acetaminophen 500 mg tablet 1,000 mg PO Q6H PRN Pain 05/08/23 05/16/23 Unknown History cranberry fruit concentrate 250 mg 250 mg PO TID 05/08/23 05/16/23 05/16/23 History chewable tablet (Azo Cranberry) tiotropium bromide 18 mcg capsule 1 cap inhalation DAILY 05/08/23 05/16/23 05/16/23 History with inhalation device (Spiriva with HandiHaler) Allergies Allergy/AdvReac Type Severity Reaction Status Date / Time codeine Allergy ADR-Itching Verified 05/16/23 14:34 ketorolac [From Toradol] Allergy ALGY-Swell Verified 05/16/23 14:34 Lip/Tongue/Throat prochlorperazine Allergy Unknown Verified 05/16/23 14:34 [From Compazine] PFSH Acute PFSH: Medical History COPD (chronic obstructive pulmonary disease) MRSA (methicillin resistant Staphylococcus aureus) carrier Pulmonary nodule Social History Smoking and tobacco/nicotine status: former use of tobacco/nicotine Quit status (tobacco/nicotine): has quit using Year quit tobacco: 2016 Former quit date comment: 1.5ppd x 35 years Second hand smoke exposure: No Alcohol intake: never Substance/Drug Use: never Vitals/I&O/Wt Last Vital Signs Temp 97.5 F L 05/16/23 14:12 Pulse 113 H 05/16/23 16:00 Resp 25 H 05/16/23 16:00 BP 145/96 05/16/23 16:00 Pulse Ox 81 L 05/16/23 16:00 O2 Del Method Nasal Cannula 05/16/23 16:22 O2 Flow Rate 10 05/16/23 14:38 FiO2 35 05/16/23 14:32 05/16/23 05/16/23 05/16/23 06:59 14:59 22:59 Intake Total 300 / 300 Balance 300 / 300 Weight last 48 hrs Weight 41.73 kg Physical Exam Narrative: Thin frail female with tremors who appears 20 years older than her stated age of 57 Neurologic she is alert and oriented x4, nonfocal motor or sensory exam, cranial nerves II through XII grossly intact HEENT head is normocephalic atraumatic pupils are equal and round and reactive to light and accommodation extraocular muscles are intact there is no scleral icterus mucous membranes are dry neck is supple no JVD carotid bruits or lymphadenopathy Chest rises symmetrically with inspiration she is using accessory muscles to breathe Heart normal S1-S2 without murmurs clicks gallops or rubs Lungs severely diminished breath sounds with limited expiratory phase. No wheezes rales or rhonchi auscultated Abdomen flat soft nontender nondistended positive bowel sounds no hepatospl enomegaly Extremities for present no clubbing cyanosis or edema. The left ankle laterally appears deformed and limited dorsiflexion. Psych mood and affect are appropriate Skin no skin breakdown or rashes noted Data 05/16/23 14:10 05/16/23 14:10 CXR: My impression: Hyperinflation of lungs bilaterally.There is some blunting of both costophrenic angles the bilateral main pulmonary arteries are visualized. Radiologist's impression: IMPRESSION: 1. Marked pulmonary hyperinflation most likely indicating obstructive lung disease. No acute process identified. 2. Prominent main pulmonary arteries which may indicate pulmonary hypertension. A&P Assessment and plan (1) Acute on chronic respiratory failure with hypoxia and hypercapnia: (2) Acute exacerbation of chronic obstructive airways disease: (3) Chronic, continuous use of opioids: Plan Treatment for acute exacerbation of COPD to include IV steroids increased oxygen level duo nebs pulmonary toilet with respiratory therapy. Continue home medications. Patient does complain of some nausea will add PPI normally in the hospital at discharge for long-term prednisone use. Patient may need nebulizers at home and home health care. At discharge Attestations Medical Necessity Statement*: Patient will require 2 midnight stay due to acute on chronic respiratory failure. Coding Level of Care Code Acute Code for Chg Fwd Diagnoses Acute on chronic respiratory failure with hypoxia and hypercapnia J96.21; J96.22 Acute exacerbation of chronic obstructive airways disease J44.1 Chronic, continuous use of opioids F11.90
[2023-05-16] MEDS: methadone 10 mg Tablet PO (20:10)
[2023-05-16] MEDS: enoxaparin 40 mg/0.4 mL Syringe SUBCUT (20:10)
--- NOTE | 2023-05-16 20:10 | ECG_ITS ---
[facility] Test Date: 2023-05-16 Pat Name: Nancy Santoyo Department: Room: 251 Gender: Female Corporate Responsibility Officer: : 1965 Requested By: Nishant Schmid Order Number: [id number] Sandy MD: Xiao Landa M.D. Measurements Intervals [place] Rate: 102 P: 87 MT: 147 QRS: 68 QRSD: 82 T: 0 QT: 251 QTc: 327 Interpretive Statements SINUS TACHYCARDIA NONSPECIFIC T-WAVE ABNORMALITY ABNORMAL RHYTHM ECG Compared to ECG 05/16/2023 14:16:21 Possible ischemia no longer present T-wave abnormality still present Electronically Signed On 05-17-2023 7:11:59 CDT by Xiao Landa M.D. [id number]
[2023-05-16] MEDS: sodium chloride 0.9% 1,000 ML 75 ML IV (20:11)
[2023-05-16] MEDS: ipratropium-albuterol 3 mL Neb INHALATION (20:27)
[2023-05-16 20:54] LABS: Troponin 5 6HR 10.69 ng/L (0-10)
[2023-05-16 20:55] LABS: Troponin 5 6HR Delta -1.31 ng/L (0-12)
[2023-05-16] MEDS: methylPREDNISolone sod succ 40 MG in water for injection-sterile 1 ML 12 MG IVP (23:27)
[2023-05-16 23:51] LABS: Add Urine Microscopic? YES; Bilirubin Urine Neg (Negative); Blood Urine 2+ (Negative); Glucose Urine UA Norm (Normal); Ketones Urine Negative (Negative); Leukocyte Esterase Urine Trace (Negative); Nitrate Urine Negative (Negative); Protein Urine Neg (Negative); Specific Gravity, Urine 1.025 (1.005-1.030); Urine Appearance Clear (CLEAR); Urine Color Yellow (Yellow); Urobilinogen Urine Neg (Negative); pH Urine 6 (5-7)
[2023-05-16 23:52] LABS: Add Urine Culture? No; Amorphous Sediment Urine 2+ /hpf; Bacteria Urine 1+ /hpf; Mucus Urine 1+ /hpf; Squamous Epithelial Cell Urine 0-4 /hpf (0-5); WBC Urine 0-4 /hpf (0-5)
[2023-05-17] VITALS (11 sets, daily range): BP systolic 101–109; BP diastolic 58–67; PULSE 88–98; RESP 14–20; TEMP 29.1–37.1; O2SAT 93–97
[2023-05-17] MEDS: ipratropium-albuterol 3 mL Neb INHALATION ×5 (00:33→15:37)
[2023-05-17] MEDS: methadone 10 mg Tablet PO ×2 (08:44→16:18)
[2023-05-17] MEDS: docusate sodium 100 mg Capsule PO (08:44)
[2023-05-17] MEDS: pantoprazole DR 40 mg Tablet PO (08:44)
--- NOTE | 2023-05-17 08:48 | PC.CHAP ---
Pastoral Care Encounter/Spiritual Assessment Type of Contact [] Declined transplant nurse visit [] Patient/Family/Request visit [] Outpatient visit [] Follow-up visit [] Physician referral [] Code/Alert [x] Routine visit [] Staff referral [] Actively dying [] Patient sleeping [] Family support [] [] Out of room [] Palliative care [] [] Receiving care in room [] Pre-surgical visit [] Trauma [] Long length of stay [] ICU visit [] Other: Relational/Emotional Strength [x] Patient feels connected with others/family/visitors/staff [] Distress [] Loneliness/isolation [] Abandonment Spirituality of Patient [x] Person of Carol [] Attends Adventism of their Carol [x] Believes in Prayer [] Reads Bible or Moravian materials [] There are Spiritual issues to be addressed Supervisor [employer] Interventions [x] Prayer [x] Active listening [] Non-anxious presence [x] Spiritual/emotional support [] Crisis/trauma care [] Spiritual counseling [] Bereavement support [] Provided bereavement packet [] Provided Bible/devotional materials [] Provided toy/stuffed animal, coloring book to patient or family member [] Provided Communion [] Anointing/Rudolph [] Salvation []x Completed spiritual assessment [] Other: Impact on Illness or Injury [] Angry [] Fearful [] Anxious [] Often cries [] Exhaustion [] Unable to work [] Unable to attend baptism [] Unable to walk/stand [] Unable to read [] Unable to drive [] Unable to eat/drink [] Unable to sleep [] Unable to be with family [] Patient intubated [] Other: Summary Time spent with patient 5 min
--- NOTE | 2023-05-17 10:20 | PC.SOCIAL ---
IMM Update pg 2 of IMM updated and reviewed w/ patient. Copy provided and Copy dated, initialed and placed in chart.
[2023-05-17] MEDS: methylPREDNISolone sod succ 40 MG in water for injection-sterile 1 ML 12 MG IVP (11:59)
[2023-05-17] MEDS: azithromycin 500 MG in sodium chloride 0.9% 250 ML 250 MG IV (14:14)
[2023-05-17] MEDS: cefTRIAXone 1,000 MG in sodium chloride 0.9% (plus) 50 ML 100 MG IV (14:20)
--- NOTE | 2023-05-17 14:56 | PM.DCS ---
Discharge Providers Date of Admission: 05/16/23 14:51 Date of Discharge: May 17, 2023 Attending Provider at Admission: Rafael Jaramillo DO Attending Provider at Discharge: Rafael Jaramillo DO Primary Care Provider: Cipriano Guerra DO Diagnoses at Discharge Discharge Diagnosis (1) Acute on chronic respiratory failure with hypoxia and hypercapnia: Status: Acute (2) Acute exacerbation of chronic obstructive airways disease: Status: Acute (3) Chronic, continuous use of opioids: Status: Acute Reason for Visit Reason for Visit: heart rate is high Brief History: Nancy Santoyo is a 57 year old female was diagnosed with COPD 4 years ago has done well until recently.? She wears 3 L to sleep and increase this to 5 to 6 L during the day.? She wears her BiPAP every other night.? She says she gets quite anxious with BiPAP and does not sleep well.? Since January 26 when she suffered to compression fractures she has had 1 thing after another .? Patient's had a recent UTI with kidney stones.? But overall she has not had to be hospitalized for COPD.? In April 2022 show her PFTs showed very severe disease with FEV1 14% of prediction.? Hospital Course Hospital Course She was admitted for acute exacerbation of COPD. She was placed on IV antibiotics including Rocephin and Zithromax. She was started on IV steroids. And given nebulizer. She got very anxious last night and could not tolerate the BiPAP. She shared with me that her quality of life is very low. She began to cry describing that she does not leave her house. That her and her take care of 1 another when 1 has a good day they take care of the other and vice versa. She feels scared and alone and is wondering if there is more help she can get. We discussed the options for palliative versus hospice care. Unfortunately in this area there are no significant palliative care programs. I described what hospice is and what I thought hospice can do for her and she is agreeable. She also admitted that she has not been taking her steroids after she had the compression fractures as she knew that that was contributing. I told her that we could probably get her down to a lower dose but for now she needed higher doses. She is agreeable. Lastly we talked about anxiety treatment and measures to help her sleep. I felt like there were 2 options for treating. I offered BuSpar on a daily regimen to help with overall anxiety and therefore help with sleep. I also offered trazodone therapy just at night she mentions that she is very sensitive to medications so I was little concerned starting trazodone at night and I wanted to monitor over night in the hospital. However she is worried about her and wishes to go home. Thus we will start BuSpar. Arrangements will be made to admit to [facility] hospice early next week. Physical Exam Narrative: Thin frail female with tremors who appears 20 years older than her stated age of 57 Chest rises symmetrically with inspiration she is minimal amount of accessory muscles to breathe when she talks. Heart normal S1-S2 without murmurs clicks gallops or rubs Lungs severely diminished breath sounds with limited expiratory phase. No wheezes rales or rhonchi auscultated Abdomen flat soft nontender nondistended positive bowel sounds no hepatosplenomegaly Extremities for present no clubbing cyanosis or edema. The left ankle laterally appears deformed and limited dorsiflexion. Discharge Data Studies Completed and Pending Completed Studies During Hospitalization Category Date Time Status XR chest 1V portable [id number] Stat Exams 05/16/23 14:09 Completed Pending at discharge Category Date Time Status Sputum Culture and Gram Stain Stat Lab 05/16/23 14:51 Uncollected Laboratory Results WBC 7.32 10^3/uL (3.29-11.43) 05/16/23 14:10 RBC 3.18 10^6/uL (3.85-5.65) L 05/16/23 14:10 Hgb 10.00 g/dL (11.27-16.99) L 05/16/23 14:10 Hct 31.6 % (36-47) L 05/16/23 14:10 MCV 99.4 fl (85-98) H 05/16/23 14:10 MCH 31.4 pg (27-33) 05/16/23 14:10 MCHC 31.6 g/dL (30-55) 05/16/23 14:10 RDW 12.0 % (12.1-15.1) L 05/16/23 14:10 Plt Count 230 10^3/cmm (157-399) 05/16/23 14:10 MPV 10.3 fL (7.4-10.4) 05/16/23 14:10 Neut % (Auto) 75.4 % 05/16/23 14:10 Lymph % (Auto) 15.3 % 05/16/23 14:10 [place] % (Auto) 7.5 % 05/16/23 14:10 Eos % (Auto) 0.7 % 05/16/23 14:10 Baso % (Auto) 0.8 % 05/16/23 14:10 Neut # (Auto) 5.52 10^3/uL (1.8-7.7) 05/16/23 14:10 Lymph # (Auto) 1.1 10^3/uL (0.8-4.8) 05/16/23 14:10 [place] # (Auto) 0.6 10^3/uL (0.2-0.9) 05/16/23 14:10 Eos # (Auto) 0.1 10^3/uL (0.0-0.8) 05/16/23 14:10 Baso # (Auto) 0.1 10^3/uL (0.0-0.1) 05/16/23 14:10 Nucleated RBC % (auto) 0 % 05/16/23 14:10 Nucleated RBCs # 0.0 /100WBC 05/16/23 14:10 Specimen Type Arterial 05/16/23 14:34 Sample Site Brachial, left 05/16/23 14:34 ABG pH 7.31 (7.35-7.45) L 05/16/23 14:34 ABG pCO2 65.2 mmHg (35-45) H* 05/16/23 14:34 ABG pO2 102.0 mmHg (80.0-100.0) H 05/16/23 14:34 ABG HCO3 32.8 mmol/L (22-26) H 05/16/23 14:34 ABG O2 Saturation 98.1 05/16/23 14:34 ABG Base Excess 5.3 mmol/L (-2.0-2.0) H 05/16/23 14:34 [place]ley Test Pos 05/16/23 14:34 A-a O2 Gradient 8.9 mmHg (5-10) 05/16/23 14:34 Hematocrit 29.4 % (37-47) L 05/16/23 14:34 Hgb O2 Saturation 95.8 % (95-100) 05/16/23 14:34 Carboxyhemoglobin 1.3 %THgb (0.4-20.1) 05/16/23 14:34 Methemoglobin 1.0 % (0.4-1.5) 05/16/23 14:34 Total Hemoglobin 9.6 g/dL (12-16) L 05/16/23 14:34 Sodium 141.0 mmol/L (131-143) 05/16/23 14:34 Potassium 3.5 mmol/L (3.5-5.0) 05/16/23 14:34 Glucose 150.0 mg/dL (70-115) H 05/16/23 14:34 Ionized Calcium 1.4 mmol/L (1.1-1.4) 05/16/23 14:34 O2 Delivery Device Bipap 05/16/23 14:34 FiO2 35.0 % 05/16/23 14:34 Makeup Sales Consultant ID Cak 05/16/23 14:34 Sodium 143 mmol/L (136-145) 05/16/23 14:10 Potassium 4.0 mmol/L (3.5-5.1) 05/16/23 14:10 Chloride 98 mmol/L (98-107) 05/16/23 14:10 Carbon Dioxide 34 mmol/L (22-29) H 05/16/23 14:10 Anion Gap 15.0 (5-19) 05/16/23 14:10 BUN 15 mg/dL (6-20) 05/16/23 14:10 Creatinine 1.2 mg/dL (0.5-0.9) H 05/16/23 14:10 GFR Calculation 46.5 mL/min (90-130) L 05/16/23 14:10 Glucose 144 mg/dL (65-115) H 05/16/23 14:10 Calculated Osmolality 299 mOsm/kg (285-295) H 05/16/23 14:10 Calcium 11.1 mg/dL (8.5-10.5) H 05/16/23 14:10 Total Bilirubin 0.2 mg/dL (0.15-1.2) 05/16/23 14:10 AST 26 U/L (0-32) 05/16/23 14:10 ALT 17 U/L (0-33) 05/16/23 14:10 Alkaline Phosphatase 57 U/L (35-105) 05/16/23 14:10 Troponin T Baseline 12 ng/L (0-10) H 05/16/23 14:10 Troponin T 120 Minute 11.58 ng/L (0-10) H 05/16/23 15:50 Delta Troponin T -0.42 ABS# (0-10) L 05/16/23 15:50 Troponin T Hi Sens 6Hr 10.69 ng/L (0-10) H 05/16/23 20:27 Troponin T Hi Sens 6Hr Delta -1.31 ng/L (0-12) L 05/16/23 20:27 Total Protein 7.1 g/dL (6.6-8.7) 05/16/23 14:10 Albumin 4.6 g/dL (3.5-5.2) 05/16/23 14:10 Globulin 2.5 g/dL (1.3-4.6) 05/16/23 14:10 Urine Color Yellow (Yellow) 05/16/23 23:35 Urine Appearance Clear (CLEAR) 05/16/23 23:35 Urine pH 6 (5-7) 05/16/23 23:35 Ur Specific [place] 1.025 (1.005-1.030) 05/16/23 23:35 Urine Protein Neg (Negative) 05/16/23 23:35 Urine Glucose (UA) Norm (Normal) 05/16/23 23:35 Urine Ketones Negative (Negative) 05/16/23 23:35 Urine Blood 2+ (Negative) H 05/16/23 23:35 Urine Nitrate Negative (Negative) 05/16/23 23:35 Urine Bilirubin Neg (Negative) 05/16/23 23:35 Urine Urobilinogen Neg mg/dL (Negative) 05/16/23 23:35 Ur Leukocyte Esterase Trace (Negative) H 05/16/23 23:35 Urine RBC 5-10 /hpf (0-2) H 05/16/23 23:35 Urine WBC 0-4 /hpf (0-5) H 05/16/23 23:35 Ur Squamous Epith Cells 0-4 /hpf (0-5) H 05/16/23 23:35 Amorphous Sediment 2+ /hpf 05/16/23 23:35 Urine Bacteria 1+ /hpf (NONE) H 05/16/23 23:35 Urine Mucus 1+ /hpf 05/16/23 23:35 Vitals Last Vital Signs Temp 98.6 F 05/17/23 13:35 Pulse 98 05/17/23 13:35 Resp 14 05/17/23 13:35 BP 105/67 05/17/23 13:35 Pulse Ox 93 05/17/23 13:35 O2 Del Method Nasal Cannula 05/17/23 13:35 O2 Flow Rate 3.5 05/17/23 13:35 FiO2 4 05/17/23 08:00 Discharge Plan Discharge Patient Disposition: Home Condition: Stable Prescriptions: New ondansetron HCl 4 mg Tablet 4 mg PO Q8H PRN (Reason: Nausea) Qty: 30 0RF pantoprazole 40 mg Tablet,Delayed Release (Dr/Ec) 40 mg PO DAILY Qty: 30 0RF buspirone 7.5 mg tablet 7.5 mg PO BID Qty: 90 0RF Rx Instructions: Start 1 tab twice daily for 3d, then 2 tabs twice daily for 3 d then 3 tabs twice daily. azithromycin [Zithromax] 500 mg tablet 500 mg PO DAILY 5 Days Qty: 5 0RF prednisone 10 mg tablet 10 mg PO DAILY Qty: 100 0RF Rx Instructions: Take 4 tablets daily x1 week then 2 tablets daily for second week, then 1 tablet daily until further instructions. Continued methadone 10 mg tablet 10 mg PO TID albuterol sulfate [Ventolin HFA] 90 mcg/actuation HFA aerosol inhaler 2 puff inhalation Q6H PRN (Reason: Shortness Of Breath) acetaminophen 500 mg Tablet 1,000 mg PO Q6H PRN (Reason: Pain) tiotropium bromide [Spiriva with HandiHaler] 18 mcg capsule, w/inhalation device 1 cap INHALATION DAILY Azo Cranberry 250 mg Tablet,Chewable 250 mg PO TID Discontinued prednisone 10 mg tablet 10 mg PO DAILY Discharge Orders: Discharge Order (Routine); Ordered 05/17/23 Ordered By: Rafael Jaramillo Referrals: Cipriano Guerra DO [Primary Care Provider] - Discharge Diet: Usual diet Discharge Activity: Increase activity as tolerated Patient Instructions: Opioid Safety Discharge Attestations Time Spent in Discharge Care*: greater than 30 min Quality Metrics Clinical Quality Measures [ No reported AMI, CVA or VTE this stay] Coding Level of Care Code Acute Code for Chg Fwd Diagnoses Acute on chronic respiratory failure with hypoxia and hypercapnia J96.21; J96.22 Acute exacerbation of chronic obstructive airways disease J44.1 Chronic, continuous use of opioids F11.90
--- NOTE | 2023-05-17 15:29 | PC.NURSE ---
Order for Hospice placed and signed by physician, Faxed face sheet, visit report,, dishcarge summary, and med list to hospice. Admitting on Saturday per Danilo. Patient aware. Wes notified of patient discharging home to today.
== END 2023-05-17 17:34 | disposition home or self-care (01) ==
LOC: ER 14:54 → MEDSURG 17:18
PROVIDERS: Admitting Provider Internal Medicine; Emergency Provider Family Medicine; PCP Family Medicine; Visit Provider Internal Medicine
DX: J96.21 Acute and chronic respiratory failure with hypoxia (principal); J96.22 Acute and chronic respiratory failure with hypercapnia; J44.1 Chronic obstructive pulmonary disease with (acute) exacerbation; F11.90 Opioid use, unspecified, uncomplicated; Z99.81 Dependence on supplemental oxygen; Z91.148 Patient's other noncompliance with medication regimen for other reason; Z86.14 Personal history of Methicillin resistant Staphylococcus aureus infection; Z87.891 Personal history of nicotine dependence
CPT/HCPCS: 36415; 36600; 71045; 80051; 80053; 81001; 82330; 82805; 84484; 85025; 93005; 94640; 94664; 96365; 96366; 96372; 96375; 99285; G0378; J0456; J0696; J1100; J1650; J2405; J2920; J7030; J7050

== ENCOUNTER → 2023-07-01 10:07 | Outpatient (BNVA) | payer MEDICARE, SELFPAY | PROVIDERS: PCP Family Medicine; Referring Provider Orthopaedic Surgery; Visit Provider Internal Medicine | DX: M81.0 Age-related osteoporosis without current pathological fracture (principal); E07.9 Disorder of thyroid, unspecified; E83.52 Hypercalcemia | CPT/HCPCS: 99204 ==

== ENCOUNTER 2023-07-29 13:12 | Outpatient (CLI) | payer MEDICARE, SELFPAY ==
--- NOTE | 2023-07-29 13:15 | MM_ITS ---
WS: [id number] BILATERAL 3D TOMOSYNTHESIS DIGITAL SCREENING MAMMOGRAPHY WITH CAD CLINICAL INFORMATION: Z12.39 - Encounter for other screening for malignant neop... HISTORY: Screening mammogram. No current complaints. COMPARISON: 2013 TECHNIQUE: Bilateral CC and MLO views. FINDINGS: The breasts are composed of heterogeneous fibroglandular density tissue, which can limit the detectio n of small underlying mass lesions. No suspicious mass, asymmetry, calcifications, or architectural d istortion. No evidence of malignancy. Benign punctate and lucent centered calcifications. IMPRESSION: MM/[place] [id number] BI-RADS: 2-Benign FOLLOW UP: 1 Year Follow-up Recommend return to annual screening mammography.
--- NOTE | 2023-07-29 14:00 | XR_ITS ---
WS: [id number] SCREENING DEXA SCAN True Style CLINICAL INFORMATION: osteoporosis COMPARISON: 2013 FINDINGS: The L1-L4 bone mineral density measures 0.879 g/cm2. This corresponds to a T score score of -2.5 and Z score of -0.8. Left femoral neck bone mineral density measures 0.739 g/cm2. This corresponds to a T score of -2.1 an d Z score of -0.8. Right femoral neck bone mineral density measures 0.789 g/cm2. This corresponds to a T score -1.7of an d Z score of -0.4. Mean femoral neck bone mineral density measures 0.764 g/cm2. This corresponds to a T score of -1.9 an d Z score of -0.6. IMPRESSION: Osteoporosis lumbar spine. Osteopenia femoral necks. Patient's FRAX calculated 10 year probability for major osteoporotic fracture is 14.2% and osteoporot ic hip fracture is 2.9%. Bone mineral density lumbar spine decreased -20.4% Bone mineral density femoral necks decreased -16.9%
== END 2023-07-29 13:13 | disposition home or self-care (01) ==
LOC: RAD 13:12
PROVIDERS: PCP Family Medicine; Visit Provider Family Medicine
DX: Z12.31 Encounter for screening mammogram for malignant neoplasm of breast (principal); M81.0 Age-related osteoporosis without current pathological fracture; Z13.820 Encounter for screening for osteoporosis
CPT/HCPCS: 77063; 77067; 77080

== ENCOUNTER 2023-09-12 15:05 | Outpatient (CLI) | payer MEDICARE, SELFPAY ==
[2023-09-12 16:30] LABS: Alanine Aminotransferase 7 U/L (0-33); Albumin Level 4.3 g/dL (3.5-5.2); Alkaline Phosphatase 56 U/L (35-105); Anion Gap 9.9 (5-19); Aspartate Amino Transferase 17 U/L (0-32); Blood Urea Nitrogen 14 mg/dL (6-20); Calcium 10.6 mg/dL (8.5-10.5); Carbon Dioxide 36 mmol/L (22-29); Chloride 100 mmol/L (98-107); Free T4 Free Thyroxine 1.84 ng/dL (0.82-1.77); Globulin 2.9 g/dL (1.3-4.6); Glomerular Filtration Rate 51.4 mL/min (90-130); Glucose 105 mg/dL (65-115); Osmolality Calculated 297 mOsm/kg (285-295); Sodium 143 mmol/L (136-145); Thyroid Stimulating Hormone 1.27 uIU/mL (0.27-4.20); Total Bilirubin 0.3 mg/dL (0.15-1.2); Total Protein 7.2 g/dL (6.6-8.7)
[2023-09-12 16:31] LABS: Calcium 10.4 mg/dL (8.5-10.5)
[2023-09-12 16:33] LABS: Parathyroid Hormone 14.6 pg/mL (15-65)
[2023-09-12 17:05] LABS: Potassium 2.9 mmol/L (3.5-5.1)
[2023-09-13 09:32] LABS: 25 Hydroxy Vitamin D > 120 ng/mL (30-100)
== END 2023-09-12 15:06 | disposition home or self-care (01) ==
LOC: LAB 15:07
PROVIDERS: PCP Family Medicine; Visit Provider Internal Medicine
DX: M81.0 Age-related osteoporosis without current pathological fracture (principal); E55.9 Vitamin D deficiency, unspecified; E07.9 Disorder of thyroid, unspecified
CPT/HCPCS: 36415; 80053; 81000; 82306; 82310; 83970; 84439; 84443

== ENCOUNTER 2023-09-13 14:55 | Outpatient (CLI) | payer MEDICARE, SELFPAY ==
[2023-09-13 15:40] LABS: Anion Gap 9.8 (5-19); Blood Urea Nitrogen 19 mg/dL (6-20); Carbon Dioxide 34 mmol/L (22-29); Chloride 104 mmol/L (98-107); Glomerular Filtration Rate 51.4 mL/min (90-130); Glucose 93 mg/dL (65-115); Osmolality Calculated 300 mOsm/kg (285-295); Potassium 3.8 mmol/L (3.5-5.1); Sodium 144 mmol/L (136-145)
== END 2023-09-13 14:56 | disposition home or self-care (01) ==
LOC: LAB 14:57
PROVIDERS: PCP Family Medicine; Visit Provider Internal Medicine
DX: E83.52 Hypercalcemia (principal)
CPT/HCPCS: 80048

== ENCOUNTER → 2023-09-16 10:47 | Outpatient (BNVA) | payer MEDICARE, SELFPAY | PROVIDERS: PCP Family Medicine; Visit Provider Internal Medicine | DX: E87.6 Hypokalemia (principal); E55.9 Vitamin D deficiency, unspecified; E83.52 Hypercalcemia; M81.0 Age-related osteoporosis without current pathological fracture; R79.89 Other specified abnormal findings of blood chemistry; E67.3 Hypervitaminosis D; K21.9 Gastro-esophageal reflux disease without esophagitis | CPT/HCPCS: 36415; 80048; 84439; 99215 ==

== ENCOUNTER → 2023-09-19 14:04 | Outpatient (BNVA) | payer MEDICARE, SELFPAY | PROVIDERS: PCP Family Medicine | DX: R39.9 Unspecified symptoms and signs involving the genitourinary system (principal) | CPT/HCPCS: 81000; 87086 ==

== ENCOUNTER 2023-11-04 11:37 | Outpatient (CLI) | payer MEDICARE, SELFPAY ==
[2023-11-04 13:13] LABS: Calcium 10.3 mg/dL (8.5-10.5)
[2023-11-04 13:18] LABS: Parathyroid Hormone 15.4 pg/mL (15-65)
[2023-11-04 13:22] LABS: Alanine Aminotransferase 12 U/L (0-33); Albumin Level 4.4 g/dL (3.5-5.2); Alkaline Phosphatase 53 U/L (35-105); Anion Gap 11.9 (5-19); Aspartate Amino Transferase 15 U/L (0-32); Blood Urea Nitrogen 19 mg/dL (6-20); Calcium 10.3 mg/dL (8.5-10.5); Carbon Dioxide 35 mmol/L (22-29); Chloride 99 mmol/L (98-107); Free T4 Free Thyroxine 1.74 ng/dL (0.82-1.77); Globulin 2.7 g/dL (1.3-4.6); Glomerular Filtration Rate 86.2 mL/min (90-130); Glucose 81 mg/dL (65-115); Osmolality Calculated 297 mOsm/kg (285-295); Sodium 143 mmol/L (136-145); Thyroid Stimulating Hormone 2.22 uIU/mL (0.27-4.20); Total Bilirubin 0.4 mg/dL (0.15-1.2); Total Protein 7.1 g/dL (6.6-8.7)
[2023-11-04 13:40] LABS: Potassium 2.9 mmol/L (3.5-5.1)
[2023-11-04 14:44] LABS: 25 Hydroxy Vitamin D > 120 ng/mL (30-100)
[2023-11-05 09:21] LABS: T3 Total 97 ng/dL (76-181)
[2023-11-06 08:45] LABS: Thyroglobulin AB <1 IU/mL (< or = 1); Thyroid Peroxidase Antobodies <1 IU/mL (<9)
[2023-11-13 17:34] LABS: TSH Receptor Binding Antibody 1.03 IU/L (< OR = 2.00)
== END 2023-11-04 11:38 | disposition home or self-care (01) ==
LOC: LAB 11:39
PROVIDERS: PCP Family Medicine; Visit Provider Internal Medicine
DX: M81.0 Age-related osteoporosis without current pathological fracture (principal); E83.52 Hypercalcemia; E55.9 Vitamin D deficiency, unspecified; E87.6 Hypokalemia
CPT/HCPCS: 36415; 80053; 82306; 82310; 83516; 83970; 84439; 84443; 84480; 86376; 86800

== ENCOUNTER 2023-11-06 10:15 | Outpatient (CLI) | payer MEDICARE, SELFPAY ==
[2023-11-06 11:07] LABS: Anion Gap 8.5 (5-19); Blood Urea Nitrogen 23 mg/dL (6-20); Calcium 9.9 mg/dL (8.5-10.5); Carbon Dioxide 34 mmol/L (22-29); Chloride 102 mmol/L (98-107); Glomerular Filtration Rate 86.2 mL/min (90-130); Glucose 91 mg/dL (65-115); Osmolality Calculated 295 mOsm/kg (285-295); Potassium 3.5 mmol/L (3.5-5.1); Sodium 141 mmol/L (136-145)
== END 2023-11-06 10:16 | disposition home or self-care (01) ==
LOC: LAB 10:16
PROVIDERS: PCP Family Medicine; Visit Provider Internal Medicine
DX: E87.6 Hypokalemia (principal)
CPT/HCPCS: 36415; 80048; 99214

== ENCOUNTER 2023-11-13 13:13 | Outpatient (CLI) | payer MEDICARE, SELFPAY ==
--- NOTE | 2023-11-13 13:15 | US_ITS ---
WS: [id number] RENAL ULTRASOUND HISTORY: Nephrolithiasis, R flank pain COMPARISON: CT 05/08/2023 TECHNIQUE: 2-D and color Doppler imaging of the kidney submitted. Right kidney: 9.5 cm x 4.3 cm x 4.3 cm. Cortex: 1.1 cm Normal size kidney. There is no hydronephrosis. Shadowing from the mid to lower kidney consistent wit h several calcifications. The largest calcification measures 0.6 cm. Calcific burden was also identif ied on a prior CT from 05/08/2023. Left kidney: 9.0 cm x 4.7 cm x 4.4 cm. Cortex: 1.1 cm Normal echogenicity with no hydronephrosis or mass. Aorta: Normal. Urinary Bladder: Minimally distended. IMPRESSION: 1. Several nonobstructing renal calculi identified in the RIGHT renal pelvis. These calculi were als o seen on 05/08/2023 CT. 2. No renal obstruction or cortical thinning.
== END 2023-11-13 13:14 | disposition home or self-care (01) ==
LOC: RAD 13:13
PROVIDERS: PCP Family Medicine; Visit Provider Family Medicine
DX: N20.0 Calculus of kidney (principal); R10.9 Unspecified abdominal pain
CPT/HCPCS: 76770

== ENCOUNTER 2023-12-23 11:22 | Outpatient (CLI) | payer MEDICARE, SELFPAY | END 2023-12-23 11:23 | disposition home or self-care (01) | LOC: LAB 12:35 | PROVIDERS: PCP Family Medicine; Visit Provider Internal Medicine | DX: M81.0 Age-related osteoporosis without current pathological fracture (principal); E67.3 Hypervitaminosis D; R79.89 Other specified abnormal findings of blood chemistry; E87.6 Hypokalemia; K21.9 Gastro-esophageal reflux disease without esophagitis; E83.52 Hypercalcemia | CPT/HCPCS: 36415; 82306; 82310; 82784; 83883; 83970; 84155; 84165; 84439; 84443; 84480; 86334; 99214 ==

== ENCOUNTER 2024-02-27 14:21 | Outpatient (CLI) | payer MEDICARE, SELFPAY ==
[2024-02-27 17:25] LABS: Free T4 Free Thyroxine 1.52 ng/dL (0.82-1.77)
[2024-02-27 19:16] LABS: 25 Hydroxy Vitamin D > 120 ng/mL (30-100)
== END 2024-02-27 14:22 | disposition home or self-care (01) ==
LOC: LAB 14:23
PROVIDERS: PCP Family Medicine; Visit Provider Internal Medicine
DX: E83.52 Hypercalcemia (principal); M81.0 Age-related osteoporosis without current pathological fracture; R94.6 Abnormal results of thyroid function studies
CPT/HCPCS: 36415; 82306; 84439

== ENCOUNTER → 2024-03-17 13:11 | Outpatient (BNVA) | payer MEDICARE, SELFPAY | PROVIDERS: PCP Family Medicine; Visit Provider Internal Medicine Critical Care Medicine | DX: F41.1 Generalized anxiety disorder (principal); F17.211 Nicotine dependence, cigarettes, in remission; J96.11 Chronic respiratory failure with hypoxia; J96.12 Chronic respiratory failure with hypercapnia; J44.9 Chronic obstructive pulmonary disease, unspecified; R91.1 Solitary pulmonary nodule; Z12.2 Encounter for screening for malignant neoplasm of respiratory organs; S22.000A Wedge compression fracture of unspecified thoracic vertebra, initial encounter for closed fracture; R63.6 Underweight; Y99.9 Unspecified external cause status | CPT/HCPCS: 99214 ==

== ENCOUNTER → 2024-08-03 11:58 | Outpatient (BNVA) | payer MEDICARE, SELFPAY | PROVIDERS: PCP Family Medicine; Visit Provider Clinical Nurse Specialist Adult Health | DX: K21.9 Gastro-esophageal reflux disease without esophagitis (principal); R79.89 Other specified abnormal findings of blood chemistry; E67.3 Hypervitaminosis D; F41.1 Generalized anxiety disorder; R63.6 Underweight; J96.11 Chronic respiratory failure with hypoxia; J96.12 Chronic respiratory failure with hypercapnia; E55.9 Vitamin D deficiency, unspecified | CPT/HCPCS: 80053; 82306; 83036; 85025 ==

== ENCOUNTER → 2024-10-14 09:10 | Outpatient (BNVA) | payer MEDICARE, SELFPAY | PROVIDERS: PCP Clinical Nurse Specialist Adult Health; Visit Provider Clinical Nurse Specialist Adult Health | DX: E46 Unspecified protein-calorie malnutrition (principal); J96.11 Chronic respiratory failure with hypoxia; J96.12 Chronic respiratory failure with hypercapnia; E67.3 Hypervitaminosis D; E87.6 Hypokalemia; E55.9 Vitamin D deficiency, unspecified | CPT/HCPCS: 80048; 82306; 82728; 83540 ==

== ENCOUNTER → 2025-01-07 14:53 | Outpatient (BNVA) | payer MEDICARE, SELFPAY | PROVIDERS: PCP Clinical Nurse Specialist Adult Health; Visit Provider Clinical Nurse Specialist Adult Health | DX: E55.9 Vitamin D deficiency, unspecified (principal) | CPT/HCPCS: 82306 ==

== ENCOUNTER → 2025-02-09 11:10 | Outpatient (BNVA) | payer MEDICARE, SELFPAY | PROVIDERS: PCP Clinical Nurse Specialist Adult Health; Visit Provider Clinical Nurse Specialist Adult Health | DX: E87.6 Hypokalemia (principal) | CPT/HCPCS: 80048 ==

== ENCOUNTER → 2025-04-01 13:45 | Outpatient (BNVA) | payer MEDICARE, SELFPAY | PROVIDERS: PCP Clinical Nurse Specialist Adult Health; Visit Provider Clinical Nurse Specialist Adult Health | DX: E55.9 Vitamin D deficiency, unspecified (principal); E05.90 Thyrotoxicosis, unspecified without thyrotoxic crisis or storm; E67.3 Hypervitaminosis D; E87.6 Hypokalemia | CPT/HCPCS: 80048; 82306 ==